=== PATIENT | male | born 1955 | race African-American/Black ===

== ENCOUNTER 2022-05-23 04:22 | Day surgery (SDC) | payer BC ==
[2022-05-22 11:25] VITALS: BMI 32.5
[2022-05-23] MEDS ORDERED: LIDOCAINE HCL 1%, 10 MG/ML (20ML VIAL) ONE (11:41)
[2022-05-23] MEDS ORDERED: BUPIVACAINE HCL/PF 0.5% (5MG/ML) 10 ML VIAL ONE ×2 (11:41→11:57)
[2022-05-23] MEDS ORDERED: MIDAZOLAM HCL 2 MG/2 ML SINGLE DOSE VIAL ONE ×3 (11:55→12:49)
[2022-05-23] MEDS ORDERED: BUPIVACAINE LIPOSOME/PF (EXPAREL) 266 MG/20 ML VIAL ONE (11:57)
[2022-05-23] MEDS ORDERED: ceFAZolin SODIUM 1 GM VIAL ONE (12:40)
[2022-05-23] MEDS ORDERED: ceFAZolin SODIUM 1 GM VIAL IVPB ONE (12:40)
[2022-05-23] MEDS ORDERED: BUPIVACAINE HCL/PF 0.5% (5MG/ML) 10 ML VIAL IJ ONE (12:59)
[2022-05-23] MEDS ORDERED: oxyCODONE HCL 5 MG TABLET PO PRN ×2 (13:32)
[2022-05-23] MEDS ORDERED: ONDANSETRON 4 MG/2 ML VIAL IVPUSH PRN (13:32)
[2022-05-23] MEDS ORDERED: LACTATED RINGERS SOLUTION 1,000 ML IV SCH (13:45)
[2022-05-23 18:08] VITALS: PULSE 82; RESP 18
[2022-05-23 18:38] VITALS: BP 138/88; TEMP 98.2
== END 2022-05-23 18:30 | disposition home or self-care (01) ==
LOC: JASU-SURG 04:22
PROVIDERS: ATTEND Surgery
PROC: 0YU60JZ Supplement Left Inguinal Region with Synthetic Substitute, Open Approach (ICD-10-PCS; principal; 2022-05-23 11:00)
DX: K40.90 Unilateral inguinal hernia, without obstruction or gangrene, not specified as recurrent (principal)
CPT/HCPCS: 88302-TC; 94760; C1781